=== PATIENT | female | born 1990 | race Caucasian/White ===

== ENCOUNTER → 2020-10-09 | Outpatient (CLI) | payer OTHER ==
[~2020-10-09] MED LIST: FOLIC ACID0.4 MG PO; PRENATAL CAPSU1 EACH PO
== END | disposition home or self-care (01) ==
LOC: NST 20:25
PROVIDERS: ATTEND Specialist
DX: Z34.83 Encounter for supervision of other normal pregnancy, third trimester (principal)

== ENCOUNTER 2020-11-27 12:59 | Inpatient (IN) | payer OTHER ==
[~2020-11-27] VITALS: Ht 154.9 cm; Wt 114.8 kg
[2020-11-30] MEDS ORDERED: PERCOCET 5-3251 EACH PO (10:00)
[2020-11-30] MEDS ORDERED: SURFAK240 M1 PO (10:00)
== END 2020-11-30 12:01 | disposition home or self-care (01) | DRG 785 ==
LOC: OBS/DEL 12:59 → LDR 16:50 → OB/GYN 16:50 → O/R 22:26 → OB/GYN 11-28 00:50
PROVIDERS: ADMIT Specialist; ATTEND Specialist
PROC: 0UB70ZZ Excision of Bilateral Fallopian Tubes, Open Approach (ICD-10-PCS; 2020-11-27)
PROC: 4A1HXFZ Monitoring of Products of Conception, Cardiac Rhythm, External Approach (ICD-10-PCS; 2020-11-27)
PROC: 10D00Z1 Extraction of Products of Conception, Low, Open Approach (ICD-10-PCS; principal; 2020-11-27 19:30)
DX: O36.8130 Decreased fetal movements, third trimester, not applicable or unspecified (principal); Z30.2 Encounter for sterilization; O34.211 Maternal care for low transverse scar from previous cesarean delivery; O24.420 Gestational diabetes mellitus in childbirth, diet controlled; O99.824 Streptococcus B carrier state complicating childbirth; Z3A.38 38 weeks gestation of pregnancy; Z37.0 Single live birth